=== PATIENT | female | born 1995 | race Hispanic/Latino ===

== ENCOUNTER 2017-01-01 13:03 | Emergency (ER) | payer OTHER ==
[2017-01-01 13:04] VITALS: BMI 20.7
--- NOTE | 2017-01-01 13:11 | ED PDOC ---
Arrival/HPI - General Time Seen by Provider: 01/01/17 13:10 Historian: Patient - History of Present Illness Narrative History of Present Illness (Text): 01/01/17 13:11 21 y/o female, pmh including ganglion cyst, allergic to macrolides and motrin, c /o lt. sided facial pain and swelling x 2 days s/p dental extraction. Pt. stated that she had 2 wisdom teeth extracted on the lt. sided and 1 wisdom tooth extracted on the rt. side. Pt. has pain and swelling on the both side of the face on the extraction site but left is more due to the 2 wisdom teeth instead of 1 wisdom tooth. Pt. has no fever or chills, no night sweat, no chin swelling, no change in vision, no painful eye movement, no change in vision, no headache, no night sweat, allergic to NSAIDs, no other medical or psychological complaints. Past Medical History - Provider Review Nursing Documentation Reviewed: Yes - Infectious Disease Hx of Infectious Diseases: None - Tetanus Immunization Tetanus Immunization: Unknown - Past Medical History Past Medical History: No Previous - Psychiatric Hx Depression: No Hx Emotional Abuse: No Hx Physical Abuse: No Hx Substance Use: No - Past Surgical History Past Surgical History: No Previous - Suicidal Assessment Feels Threatened In Home Enviroment: No Family/Social History - Physician Review Nursing Documentation Reviewed: Yes Family/Social History: Unknown Family HX Hx Alcohol Use: No Hx Substance Use: No Hx Substance Use Treatment: No Allergies/Home Meds Allergies/Adverse Reactions: Allergies azithromycin [From Zithromax] Allergy (Verified 01/01/17 13:18) RASH ibuprofen Allergy (Verified 01/01/17 13:18) RASH Home Medications: Home Meds Medication Instructions Recorded Confirmed Acetaminophen/Codeine 1 tab PO Q4H PRN 01/01/17 01/01/17 [Tylenol/Codeine 300 MG/30 MG] Clindamycin [Clindamycin HCl] 150 mg PO TID 01/01/17 01/01/17 Review of Systems - Review of Systems Constitutional: absent: Fatigue, Fevers Eyes: absent: Vision Changes ENT: Other (dental pain and facial swelling. ). absent: Hearing Changes Respiratory: absent: SOB, Cough Cardiovascular: absent: Chest Pain Gastrointestinal: absent: Abdominal Pain, Nausea, Vomiting Musculoskeletal: absent: Arthralgias, Back Pain, Myalgias Skin: absent: Rash, Pruritis, Skin Lesions Neurological: absent: Headache, Dizziness Psychiatric: absent: Anxiety, Depression, Suicidal Ideation Physical Exam Vital Signs Reviewed: Yes Vital Signs Temp Pulse Resp BP Pulse Ox 01/01/17 13:11 99 F 18 L 115 H 146/91 H 98 Temperature: Afebrile Blood Pressure: Hypertensive Pulse: Tachycardic Respiratory Rate: Normal Appearance: Positive for: Well-Appearing, Non-Toxic Pain Distress: Severe Mental Status: Positive for: Alert and Oriented X 3 - Systems Exam Head: Present: Atraumatic, Normocephalic, Other (+swelling noted on the lower facial cheek region with left is greater than right, no facial cellulitis or streaking, no ulcers.). No: Tenderness, Contusion, Swelling, Ecchymosis, Abrasion, Laceration Pupils: Present: PERRL Extroacular Muscles: Present: EOMI, Other (mild swelling on the left lower eyelid. ) Conjunctiva: Present: Normal, Other (pt. has no painful movement of the eyes. ) Ears: Present: NORMAL TM, Normal Canal. No: Erythema Mouth: Present: Moist Mucous Membranes Pharnyx: No: ERYTHEMA, EXUDATE, TONSILS ENLARGED, Uvular Deviation, Muffled/ Hoarse Voice, Soft Palate/Uvular Edema Nose (External): Present: Atraumatic. No: Abrasion, Contusion, Laceration, Lesions Nose (Internal): Present: Normal Inspection, No Active Bleeding. No: Rhinorrhea , Septal Deviation, Septal Hematoma, Epistaxis Neck: Present: Normal Range of Motion, Trachea Midline. No: MIDLINE TENDERNESS , Paraspinal Tenderness, Lymphadenopathy Respiratory/Chest: Present: Clear to Auscultation, Good Air Exchange. No: Respiratory Distress, Accessory Muscle Use Cardiovascular: Present: Regular Rate and Rhythm, Normal S1, S2. No: Murmurs Abdomen: Present: Normal Bowel Sounds. No: Tenderness, Distention, Peritoneal Signs, Rebound, Guarding Back: Present: Normal Inspection Upper Extremity: Present: Normal Inspection. No: Cyanosis, Edema Lower Extremity: Present: Normal Inspection. No: Edema Neurological: Present: GCS=15, CN II-XII Intact, Speech Normal Skin: Present: Warm, Dry, Normal Color. No: Rashes Psychiatric: Present: Alert, Oriented x 3, Normal Insight, Normal Concentration Medical Decision Making ED Course and Treatment: 01/01/17 13:42 -There is no obvious signs of periorbital celluitis or orbital cellulitis, swelling is likely from the extraction while the patient was sedated. I will give IV morphine and zosyn, and reasess -Pt. has lt. lower eyelid swelling, not penicillin allergy, will put on augmentin. 01/01/17 15:04 -Pain resolved, feeling much better, wants to be discharge home. -Discharge home with augmentin, visicious lidocaine to swish and spit when have acute dental pain, continue tylenol#3 at home as needed, follow up with your own pmd and dentist within 2 days, return to the ER for any new or worsening signs or symptoms. - Medication Orders Current Medication Orders: Discontinued Medications Piperacillin Sod/Tazobactam Sod (Zosyn 3.375 In Ns 100ml) 100 mls @ 200 mls/hr IVPB STAT STA PRN Reason: Protocol Stop: 01/01/17 14:02 Last Admin: 01/01/17 13:47 Dose: 200 mls/hr Sodium Chloride (Sodium Chloride 0.9%) 1,000 mls @ 999 mls/hr IV .Q1H1M STA Stop: 01/01/17 14:34 Last Admin: 01/01/17 13:47 Dose: 999 mls/hr Morphine Sulfate (Morphine) 2 mg IVP STAT STA Stop: 01/01/17 13:34 Last Admin: 01/01/17 13:49 Dose: 2 mg - PA / COMPLIANCE CLERK / Resident Statement MD/DO has reviewed & agrees with the documentation as recorded. Disposition/Present on Arrival - Present on Arrival Any Indicators Present on Arrival: No History of DVT/PE: No History of Uncontrolled Diabetes: No Urinary Catheter: No History of Decub. Ulcer: No History Surgical Site Infection Following: None - Disposition Have Diagnosis and Disposition been Completed?: Yes Diagnosis: Facial swelling, Pain, dental Disposition: HOME/ ROUTINE Disposition Time: 13:43 Patient Plan: Discharge Patient Problems: Current Active Problems Problem Status Onset Facial swelling Acute Pain, dental Acute Condition: IMPROVED Additional Instructions: -Discharge home with augmentin, visicious lidocaine to swish and spit when have acute dental pain, continue tylenol#3 at home as needed, follow up with your own pmd and dentist within 2 days, return to the ER for any new or worsening signs or symptoms. Prescriptions: Amoxicillin/Clavulanate [Augmentin 875 MG-125 MG] 1 tab PO BID #20 tab Lidocaine 2% Viscous 10 ml MM TID PRN #200 ml PRN Reason: Other Referrals: Luc Simental MD [Primary Care Provider] - Follow up with primary Boy Weldon DMD [Non-Staff] - Follow up with primary Forms: WORK NOTE
[2017-01-01] MEDS ORDERED: Morphine 2 mg/ml ISec IVP STA (13:33)
[2017-01-01] MEDS ORDERED: Piperacillin/Tazobact 3.375 gm 100 ML IVPB STA (13:33)
[2017-01-01 13:34] VITALS: TEMP 99
[2017-01-01] MEDS ORDERED: Sodium Chloride 0.9% 1,000 ML IV STA (13:34)
[2017-01-01 15:17] VITALS: BP 132/84; PULSE 79; RESP 18; O2SAT 100
== END 2017-01-01 15:22 | disposition home or self-care (01) ==
LOC: ED 13:03
DX: K08.89 Other specified disorders of teeth and supporting structures (principal); R22.0 Localized swelling, mass and lump, head
CPT/HCPCS: 96374; 99284; J2270; J2543; J7040

== ENCOUNTER 2017-01-02 11:58 | Emergency (ER) | payer OTHER ==
[2017-01-02 11:59] VITALS: BMI 20.7
[2017-01-02 12:39] VITALS: BP 114/77; PULSE 88; RESP 20; TEMP 98.3; O2SAT 98
--- NOTE | 2017-01-02 12:59 | ED PDOC ---
Arrival/HPI - General Chief Complaint: Eye Problem Time Seen by Provider: 01/02/17 12:24 Historian: Patient - History of Present Illness Narrative History of Present Illness (Text): 01/02/17 12:56 21 y/o female, no significant pmh, bib mother here for the evaluation of the face. Pt. was seen by me yesterday s/p 2 wisdom teeth removed from the lt. side and 1 wisdom tooth extracted. Pt. received morphine and IV zosyn yesterday, feels better and discharge home. Mother is bring the child here today for follow up and not to the dentist. Pt. has no fever or chills, facial swelling has been going down with pain improved today, no numbness or tingling, no difficulty seeing, no painful movement of the eye, no other medical or psychological complaints. Past Medical History - Provider Review Nursing Documentation Reviewed: Yes - Infectious Disease Hx of Infectious Diseases: None - Tetanus Immunization Tetanus Immunization: Unknown - Reproductive Menopause: No - Past Medical History Past Medical History: No Previous - Psychiatric Hx Depression: No Hx Emotional Abuse: No Hx Physical Abuse: No Hx Substance Use: No - Past Surgical History Past Surgical History: No Previous - Surgical History Other/Comment: Dental surgery. cyst removal from right wrist - Anesthesia Hx Anesthesia: No Hx Anesthesia Reactions: No Hx Malignant Hyperthermia: No - Suicidal Assessment Feels Threatened In Home Enviroment: No Family/Social History - Physician Review Nursing Documentation Reviewed: Yes Family/Social History: Unknown Family HX Smoking Status: Never Smoked Hx Alcohol Use: No Hx Substance Use: No Hx Substance Use Treatment: No Allergies/Home Meds Allergies/Adverse Reactions: Allergies azithromycin [From Zithromax] Allergy (Verified 01/01/17 13:18) RASH ibuprofen Allergy (Verified 01/01/17 13:18) RASH Home Medications: Home Meds Medication Instructions Recorded Confirmed Acetaminophen/Codeine 1 tab PO Q4H PRN 01/01/17 01/02/17 [Tylenol/Codeine 300 MG/30 MG] Review of Systems - Review of Systems Constitutional: absent: Fatigue, Fevers Eyes: absent: Vision Changes ENT: absent: Hearing Changes Respiratory: absent: SOB, Cough Cardiovascular: absent: Chest Pain Gastrointestinal: absent: Abdominal Pain, Nausea, Vomiting Musculoskeletal: absent: Arthralgias, Back Pain Neurological: absent: Headache, Dizziness Psychiatric: absent: Anxiety, Depression Physical Exam Vital Signs Reviewed: Yes Vital Signs Temp Pulse Resp BP Pulse Ox 01/02/17 12:34 98.3 F 88 20 114/77 98 Temperature: Afebrile Blood Pressure: Normal Pulse: Regular Respiratory Rate: Normal Appearance: Positive for: Well-Appearing, Non-Toxic, Comfortable Pain Distress: Mild Mental Status: Positive for: Alert and Oriented X 3 - Systems Exam Head: Present: Atraumatic, Normocephalic, Other (Facial: there is visible resolved ecchymosis on the bilateral cheek with lt. lower eyelid swelling and lt. facial cheek mildly swelling compared to yesterday, rt. sided swelling resolved, no facial cellulitis, no painful movement of the eye, no periorbital cellulitis. ). No: Tenderness, Contusion, Swelling, Ecchymosis, Abrasion, Laceration Pupils: Present: PERRL Extroacular Muscles: Present: EOMI Conjunctiva: Present: Normal Mouth: Present: Moist Mucous Membranes, Other (Visible extraction sites with no gingivial abscess or gingivitis. ) Neck: Present: Normal Range of Motion Respiratory/Chest: Present: Clear to Auscultation, Good Air Exchange. No: Respiratory Distress, Accessory Muscle Use Cardiovascular: Present: Regular Rate and Rhythm, Normal S1, S2. No: Murmurs Abdomen: Present: Normal Bowel Sounds. No: Tenderness, Distention, Peritoneal Signs Back: Present: Normal Inspection Upper Extremity: Present: Normal Inspection. No: Cyanosis, Edema Lower Extremity: Present: Normal Inspection. No: Edema Neurological: Present: GCS=15, CN II-XII Intact, Speech Normal Skin: Present: Warm, Dry, Normal Color. No: Rashes Psychiatric: Present: Alert, Oriented x 3, Normal Insight, Normal Concentration Medical Decision Making ED Course and Treatment: 01/02/17 13:00 -Pt.'s today examination is significantly better with swelling decreased significantly after ice packing at home with ecchymosis showing up today which the swelling is likely from the procedure. -Pt. has follow up appointment with her own pmd within 2 days. -Discharge home with education on follow up with your own pmd and dentist within 2 days, return to the ER for any new or worsening signs or symptoms. - PA / SERVER SUPPORT TECHNICIAN / Resident Statement MD/DO has reviewed & agrees with the documentation as recorded. Disposition/Present on Arrival - Present on Arrival Any Indicators Present on Arrival: No History of DVT/PE: No History of Uncontrolled Diabetes: No Urinary Catheter: No History of Decub. Ulcer: No History Surgical Site Infection Following: None - Disposition Have Diagnosis and Disposition been Completed?: Yes Diagnosis: Facial swelling Disposition: HOME/ ROUTINE Disposition Time: 13:04 Patient Plan: Discharge Condition: GOOD Additional Instructions: -Discharge home with education on follow up with your own pmd and dentist within 2 days, continue augmentin at home, return to the ER for any new or worsening signs or symptoms. Referrals: Luc Simental MD [Primary Care Provider] - Follow up with primary [facility] [place] - Follow up with primary Forms: [facility] ([place]), WORK NOTE
== END 2017-01-02 13:06 | disposition home or self-care (01) ==
LOC: ED 11:58
DX: R22.0 Localized swelling, mass and lump, head (principal)